=== PATIENT | male | born 1950 | race Caucasian/White ===

== ENCOUNTER 2021-12-14 14:18 | Emergency (ER) | payer MEDICARE, OTHER ==
[~2021-12-14] VITALS: Ht 182 cm; Wt 88.4 kg
[2021-12-14 14:24] VITALS: BP 154/77
--- NOTE | 2021-12-14 14:41 | ED Upper Extremity ---
General Chief Complaint: Laceration Stated Complaint: L HAND LAC Source: patient Exam Limitations: no limitations History of Present Illness Date Seen by Provider: Dec 14, 2021 Time Seen by Provider: 14:36 Initial Comments Patient is a 71-year-old male who presents to the ED with injury to his left palmar side of his thumb. Patient states he was weed eating with a thick plastic string when his hand got caught against the string when bending over to grab something. This resulted in superficial and adipose injury of the left palmar thumb. Patient has 2 areas on the palmar side of the thumb with bleeding. Normal active range of motion left thumb. Up-to-date on his tetanus within the past 3 years. Allergies and Home Medications Allergies Coded Allergies: No Known Drug Allergies (Unverified , 12/14/21) Patient Home Medication List Home Medication List Reviewed: Yes Cephalexin (Cephalexin) 500 Mg Tablet, 500 MG PO QID Prescribed by: JC ARENAS on 12/14/21 1445 Hydrocodone/Acetaminophen (Hydrocodone-Acetamin 5-325 mg) 5 Mg-325 Mg Tablet, 1 TAB PO Q4H PRN for PAIN-MODERATE (5-7) Prescribed by: JC ARENAS on 12/14/21 1454 Review of Systems Constitutional: No chills, No diaphoresis, No malaise, No weakness EENTM: No ear pain, No blurred vision, No double vision Respiratory: No cough, No dyspnea on exertion, No phlegm, No short of breath Cardiovascular: No chest pain Gastrointestinal: No abdominal pain, No diarrhea, No nausea, No vomiting Genitourinary: No decreased output, No discharge Musculoskeletal: No back pain; joint pain, muscle pain Skin: change in color, other (laceration, abrasion) All Other Systems Reviewed Negative Unless Noted: Yes Past Jluaxby-Cjijsu-Opgsal Hx Patient Social History Tobacco Use?: No Use of E-Cig and/or Vaping dev: No Substance use?: No Alcohol Use?: No Pt feels they are or have been: No Physical Exam Vital Signs Vital Signs - First Documented 12/14/21 14:24 Temp 35.3 Pulse 50 Resp 20 B/P (MAP) 154/77 (102) Pulse Ox 97 O2 Delivery Room Air Capillary Refill : Height, Weight, BMI Height: '" Weight: lbs. oz. kg; BMI Method: General Appearance: WD/WN, no apparent distress HEENT: PERRL/EOMI, normal ENT inspection, TMs normal, pharynx normal Neck: non-tender, full range of motion, supple, normal inspection Cardiovascular: regular rate, rhythm, no edema, no gallop, no JVD Respiratory: chest non-tender, lungs clear, normal breath sounds, no respira tory distress, no accessory muscle use Gastrointestinal: normal bowel sounds, non tender, soft, no organomegaly Back: normal inspection, no CVA tenderness, no vertebral tenderness Hand: normal ROM (Of the left thumb), Left, laceration, soft tissue tenderness (Soft tissue injury to the left palmar thumb 2 sites with skin and adipose involvement.) Neurologic/Psychiatric: 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, no motor/sensory deficits, alert, normal mood/affect, oriented x 3 Skin: other (Superficial skin tears, adipose tears to left palmar thumb.) Progress/Results/Core Measures Results/Orders My Orders Orders - SAM DAMICO Ibuprofen Tablet (Motrin Tablet) (12/14/21 14:45) Medications Given in ED Current Medications Medications Dose Ordered Sig/Jb Route Start Time Stop Time Status Last Admin Dose Admin Ibuprofen 800 mg ONCE ONCE PO 12/14/21 14:45 12/14/21 14:47 DC 12/14/21 14:51 800 MG Vital Signs/I&O 12/14/21 14:24 Temp 35.3 Pulse 50 Resp 20 B/P (MAP) 154/77 (102) Pulse Ox 97 O2 Delivery Room Air Departure Communication (PCP) Patient with two quarter size skin injury sites to the left palmar thumb. Adipose and skin involvement. normal active range of motion of the left thumb. Discussed with patient due to the injury not able to approximate any of the tissue due to the size and not able to approximate tissue. This will heal by secondary intention. Extensive irrigation here. Wound appears to be contaminated. Patient has been working outside with grease on the hand. Will discharge with Keflex prophylactically. Up-to-date on his tetanus within the past 3 years. This will be managed by wound care at home and needs to follow-up with primary care physician in 3 to 4 days for reevaluation. Discussed soap and water with Neosporin daily. We will provide gauze for patient. Discussed if any worsening symptoms such as redness, swelling, fever to return back to ED. Patient was given ibuprofen per his request. Impression Primary Impression: Hand injury Disposition: HOME, SELF-CARE Condition: Stable Departure-Patient Inst. Decision time for Depature: 14:43 Referrals: NO,LOCAL PHYSICIAN (PCP/Family) Primary Care Physician Patient Instructions: Skin Abrasions (DC) Add. Discharge Instructions: Switch out dressing daily. Neosporin once or twice a day. Antibiotics prophylactically to prevent infection. Pain medication as needed for pain. Strongly recommend follow-up your primary care physician mid next week for reevaluation of the wound. If any worsening pain, swelling or redness to return back to ED for further evaluation. All discharge instructions reviewed with patient and/or family. Voiced understanding. Scripts Hydrocodone/Acetaminophen (Hydrocodone-Acetamin 5-325 mg) 5 Mg-325 Mg Tablet 1 TAB PO Q4H PRN for PAIN-MODERATE (5-7), #8 TAB Prov: SAM DAMICO 12/14/21 Cephalexin (Cephalexin) 500 Mg Tablet 500 MG PO QID for 7 Days, #28 TAB Prov: SAM DAMICO 12/14/21 SAM DAMICO Dec 14, 2021 14:41
[2021-12-14] MEDS ORDERED: IBUPROFEN 800 MG (MOTRIN) TAB PO ONE (14:45)
[2021-12-14] MEDS ORDERED: CEPH500T PO (14:45)
[2021-12-14] MEDS ORDERED: ACHD5005 PO (14:54)
== END 2021-12-14 14:57 | disposition home or self-care (01) ==
LOC: ER 14:22
DX: S61.012A Laceration without foreign body of left thumb without damage to nail, initial encounter (principal); Z28.310 Unvaccinated for COVID-19; W45.8XXA Other foreign body or object entering through skin, initial encounter